=== PATIENT | male | born 1965 | race Caucasian/White ===

== ENCOUNTER 2021-05-31 16:27 | Inpatient (IN) ==
[2021-05-31] MEDS ORDERED: CLINDAMYCIN INJ 600 MG/50 ML PREMIX IV STA (17:29)
[2021-05-31] MEDS ORDERED: VANCOMYCIN INJ 1,000 MG in SODIUM CHLORIDE 0.9% 250 ML IV STA (17:29)
[2021-05-31 18:04] LABS: Basophils # 0.1 10*3/uL (0.0-0.2); Basophils % 0.8 % (0.0-0.8); Hematocrit 37.7 VOL% (42.0-52.0); Immature Granulocytes % 0.4 %; Immature Granulocytes Absolute 0.04 #; Mean Corpuscular HGB Conc 31.8 GM/DL (32-36); Mean Corpuscular Volume 91.3 FL (87-102); Mean Platelet Volume 9.7 FL (9.6-12.0); Monocytes % 7.2 % (1.7-12.7); Neutrophils % 59.6 % (38.7-73.9); Platelet Count 319 T/CUMM (130-400); Red Blood Count 4.13 MC/CUMM (3.8-5.5); White Blood Count 9.3 T/CUMM (4-12)
[2021-05-31 18:25] LABS: Alanine Aminotransferase 26 U/L (16-61); Albumin 3.4 G/DL (3.4-5.0); Alkaline Phosphatase 110 U/L (45-117); Aspartate Amino Transferase 16 U/L (0-37); Bilirubin,Total < 0.39 MG/DL (0.20-1.00); Blood Urea Nitrogen 20 MG/DL (7-18); Calcium 9.4 MG/DL (8.5-10.1); Carbon Dioxide 28 MMOL/L (21-32); Estimated Glom Filtration Rate 111 ML/MIN; Glucose 159 MG/DL (74-106); Potassium 4.5 MMOL/L (3.5-5.1); Sodium 136 MMOL/L (136-145); Total Protein 7.8 G/DL (6.4-8.2)
[2021-05-31 18:26] LABS: Eosinophils 17 % (0-10); Lymphocytes 19 % (20-55); Segmented Neutrophils 58 % (50-85); Total Cells Counted 100
[2021-05-31 18:27] LABS: Anisocytosis 1+; Polychromasia Slight; Spherocytes Slight
[2021-05-31 18:28] LABS: Burr Cells Slight; Platelet Estimate Adequate
[2021-05-31] MEDS ORDERED: ONDANSETRON 4 MG/2 ML VIAL IV PRN (19:00)
[2021-05-31] MEDS ORDERED: DEXTROSE 50% 25 GM/50 ML VIAL IV PRN ×2 (19:00)
[2021-05-31] MEDS ORDERED: GLUCAGON 1 MG VIAL IM PRN ×2 (19:00)
[2021-05-31] MEDS ORDERED: MORPHINE 2 MG/1 ML SYRINGE IV PRN (19:00)
[2021-05-31] MEDS: ENOXAPARIN 40 MG/0.4 ML SYRINGE SUBCUT SCH (23:03)
[2021-05-31] MEDS: ATORVASTATIN 40 MG TABLET PO SCH (23:03)
[2021-05-31] MEDS: INSULIN LISPRO 100 UNIT/ML SUBCUT SCH (23:13)
[2021-05-31] MEDS: PIPERACILLIN/TAZOBACTAM 3,375 MG in SODIUM CHLORIDE 0.9% 100 ML IV SCH (23:14)
[2021-06-01] MEDS: VANCOMYCIN INJ 1,500 MG in SODIUM CHLORIDE 0.9% 500 ML IV SCH ×2 (05:08→16:34)
[2021-06-01 07:09] LABS: Basophils # 0.1 10*3/uL (0.0-0.2); Basophils % 0.8 % (0.0-0.8); Eosinophils % 11.6 % (0.00-10.9); Hematocrit 35.7 VOL% (42.0-52.0); Hemoglobin 11.4 GM/DL (14.0-18.0); Immature Granulocytes % 0.5 %; Immature Granulocytes Absolute 0.04 #; Lymphocytes # 1.8 10*3/uL (1.4-4.0); Lymphocytes % 20.6 % (21.2-54.2); Mean Corpuscular HGB Conc 31.9 GM/DL (32-36); Mean Corpuscular Volume 92.5 FL (87-102); Mean Platelet Volume 10.1 FL (9.6-12.0); Monocytes % 9.2 % (1.7-12.7); Neutrophils % 57.3 % (38.7-73.9); Platelet Count 296 T/CUMM (130-400); Red Blood Count 3.86 MC/CUMM (3.8-5.5); Red Cell Distribution Width 12.9 % (9.3-17.3); White Blood Count 8.6 T/CUMM (4-12)
[2021-06-01 07:37] LABS: Osmolality,Calculated 272.1 MOS/KG (273-304); Potassium 4.3 MMOL/L (3.5-5.1); Thyroid Stimulating Hormone 2.96 uIU/ml (0.358-3.74)
[2021-06-01 07:52] LABS: Atypical Lymphocytes Few; Eosinophils 11 % (0-10); Hypochromasia Slight; Lymphocytes 18 % (20-55); Microcytosis 1+; Segmented Neutrophils 63 % (50-85); Total Cells Counted 100
[2021-06-01 07:53] LABS: Ovalocytes Slight; Platelet Estimate Normal
[2021-06-01] MEDS: INSULIN LISPRO 100 UNIT/ML SUBCUT SCH ×4 (07:58→20:56)
[2021-06-01] MEDS ORDERED: MAGNESIUM SULF RIDER 2 GM/50 ML PREMIX IV PRN (08:37)
[2021-06-01] MEDS ORDERED: MAGNESIUM SULF RIDER 4 GM/100 ML PREMIX IV PRN (08:37)
[2021-06-01] MEDS: PIPERACILLIN/TAZOBACTAM 3,375 MG in SODIUM CHLORIDE 0.9% 100 ML IV SCH ×2 (09:22→16:33)
[2021-06-01] MEDS: lisinopriL 5 MG TABLET PO SCH (09:23)
[2021-06-01] MEDS: METOPROLOL SUCCINATE XL 25 MG TABLET PO SCH (09:23)
[2021-06-01] MEDS: ASPIRIN CHEW 81 MG TABLET PO SCH (09:23)
[2021-06-01] MEDS: CLOPIDOGREL 75 MG TABLET PO SCH (09:23)
[2021-06-01] MEDS: buPROPion 100 MG TABLET PO SCH (09:23)
[2021-06-01] MEDS ORDERED: DEXTROSE 50% 25 GM/50 ML VIAL IV PRN (11:00)
[2021-06-01] MEDS ORDERED: GLUCAGON 1 MG VIAL IM PRN (11:00)
[2021-06-01] MEDS: ENOXAPARIN 40 MG/0.4 ML SYRINGE SUBCUT SCH (18:21)
[2021-06-01] MEDS: ATORVASTATIN 40 MG TABLET PO SCH (20:55)
[2021-06-02] MEDS: PIPERACILLIN/TAZOBACTAM 3,375 MG in SODIUM CHLORIDE 0.9% 100 ML IV SCH ×4 (00:05→23:27)
[2021-06-02] MEDS: VANCOMYCIN INJ 1,500 MG in SODIUM CHLORIDE 0.9% 500 ML IV SCH ×2 (05:27→18:12)
[2021-06-02] MEDS: METOPROLOL SUCCINATE XL 25 MG TABLET PO SCH (08:56)
[2021-06-02] MEDS: CLOPIDOGREL 75 MG TABLET PO SCH (08:56)
[2021-06-02] MEDS: ASPIRIN CHEW 81 MG TABLET PO SCH (08:57)
[2021-06-02] MEDS: lisinopriL 5 MG TABLET PO SCH (08:57)
[2021-06-02] MEDS: buPROPion 100 MG TABLET PO SCH (08:57)
[2021-06-02] MEDS: INSULIN LISPRO 100 UNIT/ML SUBCUT SCH ×4 (08:58→20:34)
[2021-06-02] MEDS: ENOXAPARIN 40 MG/0.4 ML SYRINGE SUBCUT SCH (18:13)
[2021-06-02] MEDS: ATORVASTATIN 40 MG TABLET PO SCH (20:34)
[2021-06-03] MEDS: VANCOMYCIN INJ 1,500 MG in SODIUM CHLORIDE 0.9% 500 ML IV SCH ×3 (03:27→23:47)
[2021-06-03 05:59] LABS: Basophils # 0.1 10*3/uL (0.0-0.2); Basophils % 1.1 % (0.0-0.8); Eosinophils # 0.7 10*3/uL (0.0-0.87); Eosinophils % 10.3 % (0.00-10.9); Hematocrit 36.6 VOL% (42.0-52.0); Hemoglobin 11.5 GM/DL (14.0-18.0); Immature Granulocytes % 0.6 %; Immature Granulocytes Absolute 0.04 #; Lymphocytes # 1.8 10*3/uL (1.4-4.0); Lymphocytes % 27.1 % (21.2-54.2); Mean Corpuscular HGB Conc 31.4 GM/DL (32-36); Mean Corpuscular Volume 92.9 FL (87-102); Mean Platelet Volume 9.6 FL (9.6-12.0); Monocytes % 10.8 % (1.7-12.7); Neutrophils % 50.1 % (38.7-73.9); Platelet Count 292 T/CUMM (130-400); Red Blood Count 3.94 MC/CUMM (3.8-5.5); Red Cell Distribution Width 12.7 % (9.3-17.3); White Blood Count 6.5 T/CUMM (4-12)
[2021-06-03 06:24] LABS: Calcium 8.8 MG/DL (8.5-10.1); Osmolality,Calculated 275.7 MOS/KG (273-304); Potassium 4.1 MMOL/L (3.5-5.1)
[2021-06-03] MEDS: INSULIN LISPRO 100 UNIT/ML SUBCUT SCH ×4 (08:05→21:46)
[2021-06-03] MEDS: ASPIRIN CHEW 81 MG TABLET PO SCH (09:07)
[2021-06-03] MEDS: PIPERACILLIN/TAZOBACTAM 3,375 MG in SODIUM CHLORIDE 0.9% 100 ML IV SCH ×3 (09:07→23:48)
[2021-06-03] MEDS: METOPROLOL SUCCINATE XL 25 MG TABLET PO SCH (09:07)
[2021-06-03] MEDS: CLOPIDOGREL 75 MG TABLET PO SCH (09:07)
[2021-06-03] MEDS: buPROPion 100 MG TABLET PO SCH (09:07)
[2021-06-03] MEDS: lisinopriL 5 MG TABLET PO SCH (09:07)
[2021-06-03] MEDS: ENOXAPARIN 40 MG/0.4 ML SYRINGE SUBCUT SCH (21:46)
[2021-06-03] MEDS: ATORVASTATIN 40 MG TABLET PO SCH (21:46)
[2021-06-04] MEDS: VANCOMYCIN INJ 1,500 MG in SODIUM CHLORIDE 0.9% 500 ML IV SCH (06:59)
[2021-06-04] MEDS: ASPIRIN CHEW 81 MG TABLET PO SCH (09:30)
[2021-06-04] MEDS: buPROPion 100 MG TABLET PO SCH (09:31)
[2021-06-04] MEDS: lisinopriL 5 MG TABLET PO SCH (09:31)
[2021-06-04] MEDS: METOPROLOL SUCCINATE XL 25 MG TABLET PO SCH (09:31)
[2021-06-04] MEDS: PIPERACILLIN/TAZOBACTAM 3,375 MG in SODIUM CHLORIDE 0.9% 100 ML IV SCH (09:31)
[2021-06-04] MEDS: CLOPIDOGREL 75 MG TABLET PO SCH (09:31)
[2021-06-04] MEDS: INSULIN LISPRO 100 UNIT/ML SUBCUT SCH ×2 (09:35→15:30)
[2021-06-04 11:45] VITALS: BP 122/75
[2021-06-04] MEDS ORDERED: cefTRIAXone 2,000 MG in SODIUM CHLORIDE 0.9% 100 ML IV SCH (14:00)
== END 2021-06-04 17:57 | disposition home health service (06) | DRG 638 ==
LOC: N.ED 16:27 → N.EDINP 19:00 → SUATTDRO 19:00 → N.3E 21:58
PROVIDERS: ADMIT Internal Medicine; ATTEND Internal Medicine